=== PATIENT | female | born 1955 | race African-American/Black ===

== ENCOUNTER 2018-07-05 06:24 | Emergency (ER) | payer MEDICAID ==
[~2018-07-05] VITALS: Ht 167.6 cm; Wt 123.0 kg
[~2018-07-05 06:24] MED LIST: ALBU17AE26 PO; AMLO5TAB88 PO; FLUT16SP15 NS; FURO40TA5 PO; METF-414 PO; MOME13HF INH; MONT10TA24 PO; OMEP20CA10 PO
[2018-07-05] MEDS ORDERED: ONDANSETRON HCL 4MG/2ML INJ IV STA (09:20)
[2018-07-05] MEDS ORDERED: HYDROCODONE/ACETAMINOPHEN 5/325MG TABLET PO ONE (09:30)
[2018-07-05] MEDS ORDERED: KETOROLAC 30MG/ML VIAL IV ONE (09:30)
[2018-07-05 10:08] LABS: BASOPHILS % 0.7 % (0.0-2.0); EOSINOPHILS % 2.9 % (0.0-5.0); HEMATOCRIT. 38.8 % (36.0-48.0); HEMOGLOBIN. 12.7 g/dL (12.0-16.0); LYMPHOCYTES % 18.9 % (20.0-50.0); MEAN CORPUSCULAR HEMOGLOBIN 27.3 pg (28.0-32.0); MEAN CORPUSCULAR VOLUME 83.2 fL (81.0-99.0); MEAN PLATELET VOLUME 8.4 fl (7.4-10.4); MONOCYTES % 11.5 % (2.0-8.0); PLATELET 215 x1000/uL (130-400); RED BLOOD CELL COUNT 4.66 mill/uL (4.2-5.4); RED CELL DISTRIBUTION WIDTH 15.8 % (11.6-14.6)
[2018-07-05 10:18] LABS: CHLORIDE 104 mEq/L (98-107)
[2018-07-05 11:26] LABS: CLARITY URINE CLOUDY (CLEAR); COLOR URINE YELLOW (YELLOW); KETONES URINE NEGATIVE (NEGATIVE); LEUKOCYTE ESTERASE URINE NEGATIVE (NEGATIVE); NITRITE URINE NEGATIVE (NEGATIVE); OCCULT BLOOD URINE NEGATIVE (NEGATIVE); PH URINE 5.5 (4.5-8.0); PROTEIN URINE NEGATIVE (NEGATIVE); SPECIFIC GRAVITY URINE 1.024 (1.005-1.030)
[2018-07-05] MEDS ORDERED: ALBUTEROL (0.083%) 2.5MG/3ML NEB HHN STA ×2 (12:11→13:18)
[2018-07-05] MEDS ORDERED: IPRATROPIUM BROMIDE (0.02%) 0.5MG/2.5ML NEB HHN STA ×2 (12:11→13:18)
[2018-07-05] MEDS ORDERED: METHYLPREDNISOLONE SOD SUCC 125 MG/2 ML VIAL IV STA (13:18)
[2018-07-05 15:02] VITALS: BP 127/76
== END 2018-07-05 15:07 | disposition home or self-care (01) ==
LOC: ER 06:24
DX: J44.1 Chronic obstructive pulmonary disease with (acute) exacerbation (principal); R09.02 Hypoxemia; E11.9 Type 2 diabetes mellitus without complications; Z98.890 Other specified postprocedural states; Z79.899 Other long term (current) drug therapy
CPT/HCPCS: 36415; 71045; 80053; 81003; 82962; 83880; 84484; 85025; 87804; 93005; 94640; 96374; 96375; 99284; J1885; J2405; J7611; Z7610